=== PATIENT | male | born 1995 | race Asian ===

== ENCOUNTER 2018-02-10 00:50 | Emergency (ER) | payer OTHER ==
[~2018-02-10] VITALS: Ht 172.7 cm; Wt 74.8 kg
[2018-02-10] MEDS ORDERED: atorvastatin PO (01:06)
[2018-02-10] MEDS ORDERED: metformin PO (01:06)
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
--- NOTE | 2018-02-10 01:57 | NUR ---
career technical supervisor at bedside for xray
--- NOTE | 2018-02-10 02:36 | NUR ---
Patient discharged to home in stable conditon. Written and verbal after care instructions given. Patient verbalizes understanding of instructions. Pt. d/c per , d/c papers signed, all belongings w/ pt., left in private vehicle, no acute distress, ambulated off unit w/ steady gait,
== END 2018-02-10 02:38 | disposition home or self-care (01) ==
LOC: ER 00:53
DX: M25.511 Pain in right shoulder (principal); M25.512 Pain in left shoulder; M54.5 Low back pain; M25.571 Pain in right ankle and joints of right foot; E78.5 Hyperlipidemia, unspecified; E11.9 Type 2 diabetes mellitus without complications; F17.200 Nicotine dependence, unspecified, uncomplicated; Z79.899 Other long term (current) drug therapy; X58.XXXA Exposure to other specified factors, initial encounter; Y93.89 Activity, other specified; Y92.89 Other specified places as the place of occurrence of the external cause; Y99.8 Other external cause status
CPT/HCPCS: 72100; 73020; 73610; A4663